=== PATIENT | female | born 1940 | race Caucasian/White ===

== ENCOUNTER 2016-11-26 06:55 | Day surgery (SDC) | payer MEDICARE ==
[2016-11-26] VITALS (12 sets, daily range): BP systolic 112–160; BP diastolic 61–87; PULSE 61–78; RESP 10–18; O2SAT 90–98
[~2016-11-26] VITALS: Ht 175.3 cm; Wt 92.4 kg
[~2016-11-26 06:55] MED LIST: ACET325C PO; ASPI-973 PO; Bupivacaine Liposome 1.3% 20 mL Inj INFILTRATE ONE; CHOL100045 PO; CIPR-231 PO; CeFAZolin Inj 2 GM in IV Premix 1 EACH IV ONE; ESTR42.52 VAGINAL; HYDR25TA4 PO; LACT1CAP75 PO; METO-272 PO; MULT-1073 PO; OMEG-38 PO; TRAZ-115 PO; TRIM100T PO; VENL37.57 PO; Vancomycin Inj 1,000 MG in IV Premix 1 EACH IV ONE
[2016-11-26] MEDS ORDERED: Dexamethasone 4 mg/mL Inj ONE (06:56)
[2016-11-26] MEDS ORDERED: Phenylephrine/NS-PF 100 mCg/mL 5 mL Syringe IVPUSH ONE (06:56)
[2016-11-26] MEDS ORDERED: Ondansetron 2 mg/mL 2 mL Inj ONE (06:56)
[2016-11-26] MEDS ORDERED: Propofol 10,000 mCg/mL 20 mL Inj ONE (06:56)
[2016-11-26] MEDS ORDERED: Lidocaine PF 1% 30 mL Inj ONE (06:56)
[2016-11-26] MEDS ORDERED: fentaNYL-PF 50 mCg/mL 2 mL Inj ONE (06:56)
[2016-11-26] MEDS: Lactated Ringer's 1,000 ML IV SCH ×2 (08:06→09:58)
[2016-11-26] MEDS ORDERED: Lactated Ringer's 500 ML IV PRN (09:31)
[2016-11-26] MEDS ORDERED: Lactated Ringer's 1,000 ML IV SCH (09:31)
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
[2016-11-26] MEDS ORDERED: Phenylephrine 10,000 mCg/mL Inj IVPUSH PRN (09:35)
[2016-11-26] MEDS ORDERED: Atropine 0.4 mg/mL Inj IVPUSH PRN (09:35)
[2016-11-26] MEDS ORDERED: Labetalol 5 mg/mL 4 mL Inj IV PRN (09:35)
[2016-11-26] MEDS ORDERED: HYDROmorphone 1 mg/mL Inj IVPUSH PRN (09:35)
[2016-11-26] MEDS ORDERED: Ondansetron 2 mg/mL 2 mL Inj IVPUSH PRN (09:35)
[2016-11-26] MEDS ORDERED: EPHEDrine Sulfate 50 mg/mL Inj IVPUSH PRN (09:35)
[2016-11-26] MEDS ORDERED: hydrALAZINE 20 mg/mL Inj IVPUSH PRN (09:35)
[2016-11-26] MEDS ORDERED: fentaNYL-PF 50 mCg/mL 2 mL Inj IVPUSH PRN (09:35)
[2016-11-26] MEDS ORDERED: Dexamethasone 4 mg/mL Inj IVPUSH PRN (09:35)
[2016-11-26] MEDS ORDERED: MetoCLOpramide 5 mg/mL 2 mL Inj IVPUSH PRN (09:35)
[2016-11-26] MEDS ORDERED: Bupivacaine Liposome 1.3% 20 mL Inj INFILTRATE ONE (10:38)
[2016-11-26] MEDS ORDERED: Bupivacaine-MPF 0.25%/EPI 30 mL Inj INJ ONE (10:38)
[2016-11-26] MEDS ORDERED: Gentamicin 40 mg/mL 2 mL Inj IRRIGATION ONE (10:38)
[2016-11-26] MEDS ORDERED: oxyCODONE-Acetamin 5-325 mg Tablet PO ONE (12:55)
[2016-11-26] MEDS ORDERED: oxyCODONE-Acetamin 5-325 mg Tablet PO PRN (13:05)
--- NOTE | 2016-11-26 13:10 | DRSVH ---
PROCEDURE: X-RAY RIGHT KNEE, ONE OR TWO VIEWS ([id number]) INDICATIONS: CHECK ALIGNMENT TECHNIQUE: 2 view(s) of the knee acquired. COMPARISON: [facility], CR, XR KNEE ARTHRITIC SERIES RT, 08/11/2016, 13:28. FINDINGS: Bones: Patient is status post knee joint arthroplasty. Hardware components are in expected position s. Visualized bony structures are intact. Soft tissues: Overlying postoperative changes are noted. IMPRESSION: Expected limits status post placement of new lateral right knee unicondylar arthroplasty and stable positioning of hardware involving the medial compartment. Dictated by: Ricardo Glover [facility] Interpreted: Anson Guerrero MD on 11/26/2016 at 13:08 Transcribed by: TERESA on 11/26/2016 at 13:09 Approved by: Anson Guerrero M.D. on 11/27/2016 at 13:26
--- NOTE | 2016-11-26 13:29 | PCM.ANEP1 ---
Post Anesthesia Phase 1 PACU Phase 1 Assessment Date of Service: Nov 26, 2016 Vital Signs Vital Signs Date Time Temp Pulse Resp B/P Pulse Ox O2 Delivery O2 Flow Rate FiO2 11/26/16 13:02 62 16 130/62 93 Nasal Cannula 2 11/26/16 12:40 37.0 63 18 143/78 95 Nasal Cannula 2 11/26/16 12:35 64 16 140/68 95 Nasal Cannula 2 11/26/16 12:30 65 14 134/64 96 Nasal Cannula 2 11/26/16 12:20 69 14 132/68 90 Room Air 11/26/16 12:15 37.0 74 16 141/64 93 Room Air 11/26/16 12:10 75 13 129/71 93 Room Air 11/26/16 12:05 77 14 152/61 95 Room Air 11/26/16 12:00 77 11 160/87 98 Simple Mask 8 11/26/16 11:58 37.2 78 10 159/76 97 Simple Mask 8 11/26/16 07:26 35.8 61 16 125/79 97 Room Air Anesthetic Administered: GA Level of Alertness: Awake, talking CARMEN's with Equal Strength: Yes Pain: No Nausea or Vomiting: No Oxygen Delivery: Simple Mask Lungs: Normal Air Movement Mik Sue MD Nov 26, 2016 13:29
--- NOTE | 2016-11-26 16:30 | OP ---
[address] [address] OPERATIVE REPORT PATIENT: ESTEE RG : 1940 MR#: [id number] ADMIT: 11/26/2016 JOB ID: [id number] DATE OF SURGERY: 11/26/2016 SURGEON: Armando Duran MD IT ARCHITECTURE ANALYST: Roshni Carney PA-C. An server assistant was required due to the complexity of operation. PREOPERATIVE DIAGNOSIS(ES): Lateral compartment osteoarthritis. POSTOPERATIVE DIAGNOSIS(ES): 1. Lateral compartment osteoarthritis. 2. Polyethylene failure of medial compartment, unicompartmental knee arthroplasty, right knee. PROCEDURE: 1. Revision, polyethylene component, medial compartment of the right knee. 2. Synovectomy. 3. Unicompartmental knee arthroplasty of the lateral compartment of the right knee. INDICATIONS: This woman had a unicompartmental knee done on her medial compartment many years ago. She was very happy with this and did well for extended period of time of many years. Persistent symptoms have developed over the last year with noted progressive arthritis of the lateral compartment. The medial compartment arthroplasty appeared radiographically intact. She elects for and requests a lateral unicompartmental knee replacement. PROCEDURE IN DETAIL: The patient was prepped and draped in usual sterile fashion. An anterolateral arthrotomy was performed. Following the initiation of the arthrotomy, metal staining of the synovial tissue with progressive synovitis in the suprapatellar pouch was encountered. Advanced lateral compartment osteoarthritis was also noticed. Dissection was carried down to evaluate the medial compartment arthroplasty utilizing retraction to visualize the medial side. The components looked intact and functional. The polyethylene was removed and it was noted to have failed posteriorly. There were several pieces of fractured polyethylene within the knee which were removed. The metal appears to have come from articulation with the femoral component with the posterior rail of the tibial compartment. Trial reductions were performed after copious irrigation and removal of as much metallic stained synovium as possible. The 10 mm polyethylene fit very nicely. A permanent 10 mm was therefore inserted and fit well. The locking mechanism was intact and functional. Attention was then performed to completing a synovectomy in the suprapatellar pouch in the lateral gutter. Following this, the alignment apparatus was assembled to perform the unicompartmental knee replacement on the lateral side and the distal femoral lateral cut was made. Tibial cut was completed with the sagittal and oscillating saw and the bone fragments were removed. All meniscal tissue and osteophytes were removed from the knee. The femur was sized to an 8 chamfer cutting block, fixed in appropriate position rotation and drill holes and chamfer cuts were made. The tibia was sized to a 3 provisionally fixed. Trial reductions performed and a 10 mm polyethylene was chosen. Excellent range of motion and soft tissue balance in flexion and extension was achieved. Wounds were irrigated with sterile irrigant. Final construct was assembled. Deep Hemovac drain was left. The knee was closed with #2 Quill deep followed by 2-0 Vicryl, 3-0, and a 4-0 intracuticular stitch. Steri-Strips were applied. The patient was taken to the recovery room in stable condition. She tolerated the procedure well. There were no complications.
--- NOTE | 2016-11-27 08:53 | PCM.ANEP2 ---
Post Anesthesia Evaluation ASA/CMS Post Anesthesia Date of Service: Nov 27, 2016 VS in Patient's Normal Range?: Yes Resp Stable; Airway Patent?: Yes CV Function & Hydration Stable: Yes Mental Status Recovered?: Yes Pain control Satisfactory?: Yes N/V Control Satisfactory?: Yes Mik Sue MD Nov 27, 2016 08:53
== END 2016-11-26 23:59 | disposition home or self-care (01) ==
LOC: SAS 06:55
PROVIDERS: ATTEND Orthopaedic Surgery
DX: T84.012A Broken internal right knee prosthesis, initial encounter (principal); M17.11 Unilateral primary osteoarthritis, right knee; Q21.0 Ventricular septal defect; E78.2 Mixed hyperlipidemia; F32.9 Major depressive disorder, single episode, unspecified; I10 Essential (primary) hypertension; Z79.82 Long term (current) use of aspirin; Z79.890 Hormone replacement therapy; Z87.891 Personal history of nicotine dependence; Z96.651 Presence of right artificial knee joint
CPT/HCPCS: 27446; 27599; 73560; C1713; C1776; J0690; J1100; J1580; J2250; J2370; J2405; J3010; J3370; J7120

== ENCOUNTER 2017-03-23 13:38 | Day surgery (SDC) | payer OTHER ==
[~2017-03-23] VITALS: Ht 175.3 cm; Wt 88.5 kg
[~2017-03-23 13:38] MED LIST changes: +0.9% Sodium Chloride 1,000 ML IV SCH; -Bupivacaine Liposome 1.3% 20 mL Inj INFILTRATE ONE; -CeFAZolin Inj 2 GM in IV Premix 1 EACH IV ONE; +Sodium Chloride LOK Flush 10 mL Syringe IV PRN; -Vancomycin Inj 1,000 MG in IV Premix 1 EACH IV ONE; +fentaNYL-PF 50 mCg/mL 2 mL Inj IVPUSH PRN
[2017-03-23] MEDS ORDERED: fentaNYL-PF 50 mCg/mL 2 mL Inj IVPUSH ONE (13:39)
[2017-03-23 14:04] VITALS: BP 141/82; PULSE 72; RESP 17; O2SAT 97
[2017-03-23 15:00] VITALS: BP 130/71; PULSE 57; RESP 16; O2SAT 93
[2017-03-23 15:10] VITALS: BP 134/70; PULSE 59; RESP 14; O2SAT 95
[2017-03-23 15:20] VITALS: BP 142/75; PULSE 57; RESP 16; O2SAT 94
[2017-03-23 15:27] VITALS: BP 160/81; PULSE 64; RESP 14; O2SAT 95
--- NOTE | 2017-03-23 23:22 | ENDO ---
[address] [address] ENDOSCOPY PROCEDURE PATIENT: ESTEE RG : 1940 MR#: [id number] ADMIT: 03/23/2017 JOB ID: [id number] DATE OF SERVICE: 03/23/2017 TYPE OF OPERATION: Colonoscopy. PREOPERATIVE DIAGNOSIS(ES): History of tubular adenoma polyps. POSTOPERATIVE DIAGNOSIS(ES): Small internal hemorrhoids. ANESTHESIA: 1. Fentanyl 100 mcg. 2. Versed 5 mg IV administered. COMPLICATIONS: None. BLOOD LOSS: Minimal. DESCRIPTION OF PROCEDURE: After risks and benefits were explained to the patient, informed consent was obtained. After anesthesia administered, colonoscope was then inserted from the rectum to the cecum. Mucosa carefully examined. Prep of the patient was fair. After procedure, the scope withdrawn and procedure terminated. FINDINGS: Upon inspection of the anus, no masses, hemorrhoids, ulcers, or fissures that were seen throughout the entire examination. There were no polyps, masses, or lesions. Retroflexion showed small internal hemorrhoids. IMPRESSION: Small internal hemorrhoids. RECOMMENDATION: Repeat colonoscopy in five years given history of tubular adenoma polyps.
== END 2017-03-23 23:59 | disposition home or self-care (01) ==
LOC: END 13:38
PROVIDERS: ATTEND Internal Medicine Gastroenterology
DX: Z12.11 Encounter for screening for malignant neoplasm of colon (principal); Z86.010 Personal history of colon polyps; K64.8 Other hemorrhoids; E78.2 Mixed hyperlipidemia; F32.9 Major depressive disorder, single episode, unspecified; Z96.651 Presence of right artificial knee joint; Z79.82 Long term (current) use of aspirin; Z79.890 Hormone replacement therapy
CPT/HCPCS: G0105; G0500; J2250; J3010; J7030